=== PATIENT | male | born 1960 | race African-American/Black ===

== ENCOUNTER 2023-03-29 20:26 | Inpatient (IN) | payer OTHER ==
[~2023-03-29] VITALS: Ht 170.2 cm; Wt 76.2 kg
[2023-03-29 21:59] LABS: PROTHROMBIN TIME 10.3 sec (9.6-11.0)
[2023-03-29 22:03] LABS: CHLORIDE 107 mEq/L (98-107)
[2023-03-29] MEDS ORDERED: DIAZEPAM 5 MG/ML 2ML CPJ IV ONE (22:15)
[2023-03-29] MEDS ORDERED: ONDANSETRON HCL 4MG/2ML INJ IV STA (22:20)
[2023-03-29] MEDS ORDERED: SODIUM CHLORIDE 0.9% 1,000 ML IV ONE (22:30)
[2023-03-29 23:21] LABS: BASOPHILS % 0.6 % (0.0-2.0); EOSINOPHILS % 0.2 % (0.0-5.0); HEMATOCRIT. 33.8 % (42.0-52.0); HEMOGLOBIN. 11.4 g/dL (14.0-18.0); LYMPHOCYTES % 9.7 % (20.0-50.0); MEAN CORPUSCULAR HEMOGLOBIN 29.4 pg (28.0-32.0); MEAN CORPUSCULAR VOLUME 87.5 fL (80.0-94.0); MEAN PLATELET VOLUME 8.5 fl (7.4-10.4); MONOCYTES % 4.1 % (2.0-8.0); NEUTROPHILS % 85.4 % (40.0-76.0); PLATELET 231 x1000/uL (130-400); RED BLOOD CELL COUNT 3.87 mill/uL (4.7-6.1); RED CELL DISTRIBUTION WIDTH 13.4 % (11.6-14.6)
[2023-03-29] MEDS ORDERED: KCL 10MEQ/50ML PREMIX 50 ML IV ONE (23:30)
[2023-03-30 02:56] LABS: CLARITY URINE CLEAR (CLEAR); COLOR URINE YELLOW (YELLOW); KETONES URINE 1+ (NEGATIVE); LEUKOCYTE ESTERASE URINE NEGATIVE (NEGATIVE); NITRITE URINE NEGATIVE (NEGATIVE); OCCULT BLOOD URINE NEGATIVE (NEGATIVE); PROTEIN URINE NEGATIVE (NEGATIVE); SPECIFIC GRAVITY URINE 1.024 (1.005-1.030)
[2023-03-30 08:00] VITALS: BP 156/84
[2023-03-30] MEDS ORDERED: HYDR25TA MT (08:37)
[2023-03-30] MEDS ORDERED: ROSU20TA2 MT (08:37)
[2023-03-30] MEDS ORDERED: DOCUSATE SODIUM 100MG CAPSULE PO PRN (09:15)
[2023-03-30] MEDS ORDERED: HYDROCODONE/ACETAMINOPHEN 5/325MG TABLET PO PRN (09:15)
[2023-03-30] MEDS ORDERED: LORAZEPAM 0.5MG TABLET PO PRN (09:15)
[2023-03-30] MEDS ORDERED: ONDANSETRON HCL 4MG/2ML INJ IV PRN (09:15)
[2023-03-30] MEDS ORDERED: IPRATROPIUM/ALBUTEROL 0.5-3(2.5)MG/3ML NEB HHN PRN (09:15)
[2023-03-30] MEDS: PANTOPRAZOLE SODIUM 40 MG/VIAL IV SCH ×2 (09:15→16:28)
[2023-03-30] MEDS ORDERED: ACETAMINOPHEN 325MG TABLET PO PRN ×2 (09:15)
[2023-03-30] MEDS ORDERED: CLONIDINE 0.1MG TABLET PO PRN (09:15)
[2023-03-30 12:00] VITALS: BP 154/92
[2023-03-30 13:17] LABS: HEMATOCRIT 37.6 % (42.0-52.0); HEMOGLOBIN 12.8 g/dL (14.0-18.0)
[2023-03-30 13:29] LABS: TOTAL IRON BINDING CAPACITY 322 ug/dL (250-450)
[2023-03-30 13:32] LABS: *AMPHETAMINES SCREEN URINE NEGATIVE (NEGATIVE); *BARBITURATES SCREEN URINE NEGATIVE (NEGATIVE); *BENZODIAZEPINES SCREEN URINE NEGATIVE (NEGATIVE); *COCAINE SCREEN URINE NEGATIVE (NEGATIVE); CANNABINOID URINE SCREEN NEGATIVE (NEGATIVE); METHADONE URINE SCREEN NEGATIVE (NEGATIVE); OPIATES URINE SCREEN NEGATIVE (NEGATIVE); PHENCYCLIDINE URINE SCREEN NEGATIVE (NEGATIVE)
[2023-03-30] MEDS ORDERED: MECLIZINE 25MG TABLET PO PRN (13:45)
[2023-03-30] MEDS: AMLODIPINE 5MG TABLET PO SCH (14:54)
[2023-03-30 15:08] LABS: FERRITIN 129 ng/mL (22-322)
[2023-03-30 15:22] LABS: VITAMIN B12 SERUM 945 pg/mL (211-911)
[2023-03-30 16:00] VITALS: BP_SYST 153; BP_SYST 166; BP_DIAS 91
[2023-03-30 16:37] LABS: HEPATITIS B SURFACE ANTIGEN NEGATIVE
[2023-03-30] MEDS ORDERED: NALOXONE HCL 0.4MG/ML VIAL IV PRN (17:00)
[2023-03-30 19:41] LABS: HEMATOCRIT 34.6 % (42.0-52.0); HEMOGLOBIN 11.8 g/dL (14.0-18.0)
[2023-03-30 20:00] VITALS: BP 136/81
[2023-03-30] MEDS: ATORVASTATIN CALCIUM 20MG TABLET PO SCH (21:19)
[2023-03-31] VITALS (7 sets, daily range): BP systolic 113–131; BP diastolic 68–84
[2023-03-31 01:02] LABS: HEMATOCRIT 36.1 % (42.0-52.0)
[2023-03-31 06:01] LABS: PROTHROMBIN TIME 10.4 sec (9.6-11.0)
[2023-03-31 06:04] LABS: BASOPHILS % 0.6 % (0.0-2.0); HEMATOCRIT. 37.2 % (42.0-52.0); HEMOGLOBIN. 12.4 g/dL (14.0-18.0); LYMPHOCYTES % 31.6 % (20.0-50.0); MEAN CORPUSCULAR HEMOGLOBIN 29.4 pg (28.0-32.0); MEAN CORPUSCULAR VOLUME 88.6 fL (80.0-94.0); MEAN PLATELET VOLUME 8.7 fl (7.4-10.4); MONOCYTES % 5.8 % (2.0-8.0); PLATELET 268 x1000/uL (130-400); RED CELL DISTRIBUTION WIDTH 13.8 % (11.6-14.6)
[2023-03-31 06:26] LABS: CHLORIDE 106 mEq/L (98-107)
[2023-03-31] MEDS: PANTOPRAZOLE SODIUM 40 MG/VIAL IV SCH ×2 (08:51→17:30)
[2023-03-31] MEDS: AMLODIPINE 5MG TABLET PO SCH (08:51)
[2023-03-31] MEDS ORDERED: PROPOFOL 200MG/20ML VIAL IV ONE (11:51)
[2023-03-31] MEDS ORDERED: ONDANSETRON HCL 4MG/2ML INJ ONE (11:52)
[2023-03-31] MEDS ORDERED: DEXAMETHASONE 4MG/ML 1ML VIAL ONE (11:52)
[2023-03-31] MEDS ORDERED: MIDAZOLAM HCL 2 MG/2 ML VIAL ONE (11:56)
[2023-03-31] MEDS: ATORVASTATIN CALCIUM 20MG TABLET PO SCH (20:55)
[2023-04-01] VITALS: BP 114/78
[2023-04-01 04:00] VITALS: BP 141/88
[2023-04-01 06:44] LABS: BASOPHILS % 0.5 % (0.0-2.0); EOSINOPHILS % 0.3 % (0.0-5.0); HEMATOCRIT. 36.8 % (42.0-52.0); HEMOGLOBIN. 12.6 g/dL (14.0-18.0); LYMPHOCYTES % 31.5 % (20.0-50.0); MEAN CORPUSCULAR VOLUME 87.6 fL (80.0-94.0); MEAN PLATELET VOLUME 8.4 fl (7.4-10.4); MONOCYTES % 4.6 % (2.0-8.0); NEUTROPHILS % 63.1 % (40.0-76.0); PLATELET 265 x1000/uL (130-400); RED BLOOD CELL COUNT 4.21 mill/uL (4.7-6.1); RED CELL DISTRIBUTION WIDTH 13.6 % (11.6-14.6)
[2023-04-01 08:00] VITALS: BP 140/89
[2023-04-01] MEDS: PANTOPRAZOLE SODIUM 40 MG/VIAL IV SCH (09:25)
[2023-04-01] MEDS: AMLODIPINE 5MG TABLET PO SCH (09:25)
[2023-04-01 12:00] VITALS: BP 138/79
[2023-04-01 16:00] VITALS: BP 135/87
[2023-04-01] MEDS: SUCRALFATE 1 G/10 ML UDC PO SCH ×2 (17:47→20:30)
[2023-04-01] MEDS: AMOXICILLIN 500 MG CAPSULE PO SCH (17:47)
[2023-04-01] MEDS: CLARITHROMYCIN 500MG TABLET PO SCH (17:47)
[2023-04-01 20:00] VITALS: BP 136/86
[2023-04-01] MEDS: ATORVASTATIN CALCIUM 20MG TABLET PO SCH (20:31)
[2023-04-01] MEDS: OMEPRAZOLE 20MG CAPSULE EXTENDED RELEASE PO SCH (20:31)
[2023-04-01] MEDS ORDERED: ZOLPIDEM TARTRATE 5MG TABLET PO PRN (22:45)
[2023-04-02] VITALS: BP 137/88
[2023-04-02 04:00] VITALS: BP 133/87
[2023-04-02 07:12] LABS: EOSINOPHILS % 1.5 % (0.0-5.0); HEMOGLOBIN. 12.7 g/dL (14.0-18.0); LYMPHOCYTES % 40.1 % (20.0-50.0); MEAN CORPUSCULAR HEMOGLOBIN 29.7 pg (28.0-32.0); MEAN CORPUSCULAR VOLUME 88.8 fL (80.0-94.0); MEAN PLATELET VOLUME 8.2 fl (7.4-10.4); MONOCYTES % 4.8 % (2.0-8.0); NEUTROPHILS % 52.6 % (40.0-76.0); PLATELET 285 x1000/uL (130-400); RED BLOOD CELL COUNT 4.28 mill/uL (4.7-6.1); RED CELL DISTRIBUTION WIDTH 13.8 % (11.6-14.6)
[2023-04-02 08:00] VITALS: BP 121/82
[2023-04-02] MEDS: OMEPRAZOLE 20MG CAPSULE EXTENDED RELEASE PO SCH ×2 (08:21→21:17)
[2023-04-02] MEDS: SUCRALFATE 1 G/10 ML UDC PO SCH ×4 (08:22→21:17)
[2023-04-02] MEDS: CLARITHROMYCIN 500MG TABLET PO SCH ×2 (08:22→16:57)
[2023-04-02] MEDS: AMLODIPINE 5MG TABLET PO SCH (08:22)
[2023-04-02] MEDS: AMOXICILLIN 500 MG CAPSULE PO SCH ×2 (08:22→16:57)
[2023-04-02 08:41] LABS: CHLORIDE 107 mEq/L (98-107)
[2023-04-02 12:00] VITALS: BP 137/88
[2023-04-02 16:00] VITALS: BP 120/78
[2023-04-02 20:00] VITALS: BP 135/88
[2023-04-02] MEDS: ATORVASTATIN CALCIUM 20MG TABLET PO SCH (21:17)
[2023-04-03 08:00] VITALS: BP 130/88
[2023-04-03] MEDS: SUCRALFATE 1 G/10 ML UDC PO SCH ×2 (08:10→12:01)
[2023-04-03] MEDS: AMLODIPINE 5MG TABLET PO SCH (08:11)
[2023-04-03] MEDS: OMEPRAZOLE 20MG CAPSULE EXTENDED RELEASE PO SCH (08:14)
[2023-04-03] MEDS ORDERED: CLARITHROMYCIN 500MG TABLET PO SCH (09:00)
[2023-04-03] MEDS ORDERED: AMOXICILLIN 500 MG CAPSULE PO SCH (09:00)
[2023-04-03] MEDS ORDERED: OMEP20CA14 PO (10:53)
[2023-04-03] MEDS ORDERED: CLAR-44 PO (10:53)
[2023-04-03] MEDS ORDERED: AMLO5TAB88 PO (10:53)
[2023-04-03] MEDS ORDERED: MECL-159 PO (10:53)
[2023-04-03] MEDS ORDERED: AMOX-494 PO (10:53)
[2023-04-03] MEDS ORDERED: SUCR1ORA15 PO (10:53)
[2023-04-03 10:59] VITALS: BP 123/87
== END 2023-04-03 12:45 | disposition home or self-care (01) | DRG 379 ==
LOC: ER 20:37 → 7WST 03-30 01:13 → EDBEDREQ 03-30 01:23 → 7WST 03-30 21:28
PROVIDERS: ADMIT Internal Medicine; ATTEND Internal Medicine
PROC: 0DB78ZX Excision of Stomach, Pylorus, Via Natural or Artificial Opening Endoscopic, Diagnostic (ICD-10-PCS; principal; 2023-03-31)
DX: K25.4 Chronic or unspecified gastric ulcer with hemorrhage (principal); D64.9 Anemia, unspecified; G90.8 Other disorders of autonomic nervous system; D72.829 Elevated white blood cell count, unspecified; E78.00 Pure hypercholesterolemia, unspecified; Z20.822 Contact with and (suspected) exposure to COVID-19; E87.6 Hypokalemia; I10 Essential (primary) hypertension; K59.00 Constipation, unspecified; K64.4 Residual hemorrhoidal skin tags; Z87.891 Personal history of nicotine dependence; Z79.82 Long term (current) use of aspirin
CPT/HCPCS: 36415; 70551; 71045; 71250; 74176; 76700; 80048; 80053; 80061; 80076; 80305; 81003; 82175; 82270; 82607; 82728; 82746; 83540; 83550; 83655; 83825; 84484; 85014; 85018; 85025; 85044; 86803; 87340; 87426; 88305; 97162; 99285; C9113; J1100; J2250; J2405; J2704; J3480; J7030; J8597